=== PATIENT | female | born 1975 | race Caucasian/White ===

== ENCOUNTER 2018-06-25 09:16 | Outpatient (CLI) | payer OTHER ==
--- NOTE | 2018-06-25 10:58 | Ultrasound Report ---
ULTRASOUND RENAL BILATERAL HISTORY: Urinary tract infection. TECHNIQUE: transabdominal ultrasound with color Doppler interrogation. COMPARISON: 04/18/15. FINDINGS: The right kidney measures 10.4 x 4.8 x 5.5cm. Right renal cortex: 0.6cm. The left kidney measures 10.2 x 5.4 x 5.8cm. Left renal cortex: 1.0cm. The kidneys are normal size, contour and position. Mild cortical thinning in both kidneys is again seen and unchanged since 04/18/15. Corticomedullary differentiation is preserved. No evidence for cystic disease, mass, nephrolithiasis, hydronephrosis or perinephric fluid. The views of the bladder and the region of the ureters appear normal. IMPRESSION: Mild cortical thinning in both kidneys which is unchanged since 04/18/15. No focal renal lesion or obstructive uropathy.
== END 2018-06-25 09:17 | disposition home or self-care (01) ==
LOC: US 09:16
PROVIDERS: ATTEND Internal Medicine
DX: N39.0 Urinary tract infection, site not specified (principal)
CPT/HCPCS: 76770

== ENCOUNTER 2019-08-08 10:54 | Outpatient (CLI) | payer OTHER ==
[2019-08-08 12:25] LABS: Hematocrit 38.8 % (30.3-42.9); Hemoglobin 13.3 gm/dl (10.1-14.3); Mean Corpuscular HGB Conc 34 % (30-34); Mean Corpuscular Volume 97 fl (79-97); Platelet Count 271 K/mm3 (140-440); Red Blood Count 3.99 M/mm3 (3.65-5.03); Red Cell Distribution Width 13.6 % (13.2-15.2)
[2019-08-08 12:37] LABS: Alanine Aminotransferase 20 units/L (7-56); Albumin 4.7 g/dL (3.9-5); BUN/Creatinine Ratio 20; Blood Urea Nitrogen 10 mg/dL (7-17); Calcium 9.3 mg/dL (8.4-10.2); Chol/HDL Ratio 3.06 %; HDL Cholesterol 49 mg/dL (40-59); Hemolysis Index 2; LDL Cholesterol,Direct 100 mg/dL (50-130)
[2019-08-11 09:01] LABS: Vitamin D, 25-OH, D2 <4 ng/mL
== END 2019-08-08 10:55 | disposition home or self-care (01) ==
LOC: LAB 10:54
PROVIDERS: ATTEND Internal Medicine
DX: Z13.220 Encounter for screening for lipoid disorders (principal); Z13.1 Encounter for screening for diabetes mellitus; E55.9 Vitamin D deficiency, unspecified; R94.6 Abnormal results of thyroid function studies
CPT/HCPCS: 36415; 80053; 80061; 82306; 82607; 83036; 84443; 85027

== ENCOUNTER 2019-08-19 11:52 | Outpatient (CLI) | payer OTHER ==
[2019-08-19 12:33] LABS: Bilirubin,Urine NEG (Negative); Blood,Urine NEG (Negative); Color,Urine Straw (Yellow); Protein,Urine <15 mg/dL mg/dL (Negative); Urobilinogen,Urine < 2.0 mg/dL (<2.0); WBC,Urine < 1.0 /HPF (0.0-6.0)
== END 2019-08-19 11:53 | disposition home or self-care (01) ==
LOC: LAB 11:52
PROVIDERS: ATTEND Internal Medicine
DX: N39.0 Urinary tract infection, site not specified (principal)
CPT/HCPCS: 81001